=== PATIENT | female | born 1995 | race American Indian/Alaskan Native ===

== ENCOUNTER 2018-01-24 21:41 | Emergency (ER) | payer MEDICAID ==
[2018-01-24 21:41] VITALS: BMI 23.8
[2018-01-24] MEDS ORDERED: Sodium Chloride 0.9% 1,000 ML IV ONE (22:11)
[2018-01-24 22:24] LABS: BASO % 0.2 % (0.0-2.0); EOS # 0.1 K/uL (0.0-0.7); EOS % 1.5 % (0.0-4.0); LYMPH # 1.9 K/uL (1.0-4.3); LYMPH % 32.6 % (20.0-40.0); MEAN CELL VOLUME 82.6 fL (81.0-99.0); MEAN CORPUSCULAR HEMOGLOBIN 27.1 pg (27.0-31.0); MEAN CORPUSCULAR HGB CONC 32.8 g/dL (33.0-37.0); MONO # 0.6 K/uL (0.0-0.8); MONO % 10.5 % (0.0-10.0); NEUT # 3.3 K/uL (1.8-7.0); NEUT % 55.2 % (50.0-75.0); NRBC % 0.1 % (0.0-2.0); RBC 4.42 Mil/uL (3.80-5.20); RED CELL DISTRIBUTION WIDTH 13.6 % (11.5-14.5)
[2018-01-24] MEDS ORDERED: Sodium Chloride 0.9% 100 ML ONE (22:54)
[2018-01-24 22:58] LABS: ALB/GLOB RATIO 1.3 (1.0-2.1); ALBUMIN 4.3 g/dL (3.5-5.0); ALT/SGPT 18 U/L (9-52); AST/SGOT 22 U/L (14-36); BLOOD UREA NITROGEN 11 mg/dL (7-17); CALCIUM 9.3 mg/dl (8.6-10.4); GFR NON-AFRICAN AMERICAN > 60; LIPASE 267 U/L (23-300)
[2018-01-24 23:09] LABS: SQUAMOUS EPITHIAL 7 /hpf (0-5); URINE BILIRUBIN NEGATIVE (NEGATIVE); URINE BLOOD NEGATIVE (NEGATIVE); URINE CLARITY Clear (Clear); URINE COLOR Yellow (YELLOW); URINE GLUCOSE (UA) NORMAL (Normal); URINE LEUKOCYTE ESTERASE NEG Leu/uL (Negative); URINE PROTEIN NEGATIVE (NEGATIVE)
[2018-01-24 23:11] LABS: HCG,QUALITATIVE URINE NEGATIVE (NEGATIVE)
--- NOTE | 2018-01-24 23:48 | C.PDOC ---
History Of Present Illness Patient presents to ED c/o diffuse abdominal pain for approx 1 week. She states the pain is intermittent, sometimes feesl liek burning. She denies nausea/vomiting/diarrhea, fever, dysuria/hematuria, vaginal bleeding/discharge. Time Seen by Provider: 01/24/18 21:54 Chief Complaint (Nursing): Abdominal Pain History Per: Patient History/Exam Limitations: no limitations Onset/Duration Of Symptoms: Days (approx 1 week) Current Symptoms Are (Timing): Still Present Severity: Mild Location Of Pain/Discomfort: Diffuse Past Medical History Reviewed: Historical Data, Nursing Documentation, Vital Signs Vital Signs: Last Vital Signs Temp 98.6 F 01/24/18 21:45 Pulse 80 01/24/18 21:45 Resp 14 01/24/18 21:45 BP 104/76 01/24/18 21:45 Pulse Ox 98 01/24/18 21:45 - Medical History PMH: No Chronic Diseases Denies: Chronic Kidney Disease Family History: States: No Known Family Hx - Social History Hx Alcohol Use: No Hx Substance Use: No - Immunization History Hx Tetanus Toxoid Vaccination: No Hx Influenza Vaccination: No Hx Pneumococcal Vaccination: No Review Of Systems Constitutional: Negative for: Fever, Chills Cardiovascular: Negative for: Chest Pain, Palpitations Respiratory: Negative for: Cough, Shortness of Breath Gastrointestinal: Positive for: Abdominal Pain. Negative for: Nausea, Vomiting, Diarrhea Genitourinary: Negative for: Dysuria, Hematuria, Vaginal Discharge, Vaginal Bleeding Physical Exam - Physical Exam Appears: Well, Non-toxic, No Acute Distress Skin: Normal Color, Warm, Dry Oral Mucosa: Moist Cardiovascular: Rhythm Regular Respiratory: Normal Breath Sounds, No Rales, No Rhonchi, No Wheezing Gastrointestinal/Abdominal: Bowel Sounds, Soft, Tenderness (mild diffuse TTP, (- ) McBurney's, (-) Lock's) Back: No CVA Tenderness Neurological/Psych: Oriented x3 ED Course And Treatment - Laboratory Results Result Diagrams: 01/24/18 22:21 01/24/18 22:21 O2 Sat by Pulse Oximetry: 98 (RA) Pulse Ox Interpretation: Normal Progress Note: Blood work, UA, Upreg and CT scan abd/pelvis ordered and reviewed. Patient given IV NS bolus. Disposition - Disposition Disposition Time: 00:00 Condition: STABLE Forms: [employer] (Georgian) - Clinical Impression Clinical Impression: Abdominal pain Physician Patient Turnover Patient Signed Over To: Gaby Paz Handoff Comments: pending ct scan abd/pelvis
[2018-01-25 00:38] VITALS: PULSE 70; RESP 18
[2018-01-25 01:04] VITALS: BP 105/85; TEMP 98.5; O2SAT 100
--- NOTE | 2018-01-25 10:14 | CT ---
Date of service: 01/24/2018 PROCEDURE: CT Abdomen and Pelvis without intravenous contrast HISTORY: lower abdominal pain COMPARISON: None. TECHNIQUE: Contiguous images were obtained from the domes of the diaphragms to the upper thighs without the administration of intravenous contrast. Oral contrast was not administered. Radiation dose: Total exam DLP = 323.07 mGy-cm. This CT exam was performed using one or more of the following dose reduction techniques: Automated exposure control, adjustment of the mA and/or kV according to patient size, and/or use of iterative reconstruction technique. FINDINGS: LOWER THORAX: Unremarkable. LIVER: Unremarkable. No gross lesion or ductal dilatation. GALLBLADDER AND BILE DUCTS: Unremarkable. PANCREAS: Unremarkable. No gross lesion or ductal dilatation. SPLEEN: Unremarkable. ADRENALS: Unremarkable. No mass. KIDNEYS AND URETERS: Unremarkable. No hydronephrosis. No solid mass. VASCULATURE: Unremarkable. No aortic aneurysm. No aortic atherosclerotic calcification or mural plaque present. BOWEL: Unremarkable. No obstruction. No gross mural thickening. APPENDIX: Unremarkable. Normal appendix. PERITONEUM: Unremarkable. No free fluid. No free air. LYMPH NODES: Unremarkable. No enlarged lymph nodes. BLADDER: Unremarkable. REPRODUCTIVE: Unremarkable. BONES: No acute fracture. OTHER FINDINGS: None. IMPRESSION: No acute abdominal pelvic pathology.
== END 2018-01-25 01:03 | disposition home or self-care (01) ==
LOC: C.ER 21:41
DX: R10.9 Unspecified abdominal pain (principal)
CPT/HCPCS: 74176; 80053; 81001; 83690; 84703; 85025; 96360; 99285; J7030

== ENCOUNTER 2018-07-09 18:25 | Emergency (ER) | payer MEDICAID ==
[2018-07-09 18:48] VITALS: PULSE 84; RESP 18; O2SAT 100; BMI 27.2
[2018-07-09] MEDS ORDERED: Sodium Chloride 0.9% 1,000 ML IV ONE (19:23)
[2018-07-09 19:51] LABS: BASO % 0.4 % (0.0-2.0); EOS % 0.8 % (0.0-4.0); HEMOGLOBIN 11.5 g/dL (11.0-16.0); LYMPH # 1.5 K/uL (1.0-4.3); MEAN CELL VOLUME 82.4 fL (81.0-99.0); MEAN CORPUSCULAR HEMOGLOBIN 27.4 pg (27.0-31.0); MEAN CORPUSCULAR HGB CONC 33.2 g/dL (33.0-37.0); MEAN PLATELET VOLUME 8.6 fL (7.2-11.7); MONO # 0.5 K/uL (0.0-0.8); MONO % 10.7 % (0.0-10.0); NEUT # 2.7 K/uL (1.8-7.0); NEUT % 56.1 % (50.0-75.0); NRBC % 0.1 % (0.0-2.0); RBC 4.19 Mil/uL (3.80-5.20); RED CELL DISTRIBUTION WIDTH 13.1 % (11.5-14.5); WHITE BLOOD COUNT 4.8 K/uL (4.8-10.8)
[2018-07-09 20:01] LABS: HCG,QUALITATIVE URINE POSITIVE (NEGATIVE)
[2018-07-09 20:03] LABS: SQUAMOUS EPITHIAL 3 /hpf (0-5); URINE BACTERIA OCC (<OCC); URINE BILIRUBIN NEGATIVE (NEGATIVE); URINE BLOOD NEGATIVE (NEGATIVE); URINE CLARITY Hazy (Clear); URINE COLOR Yellow (YELLOW); URINE GLUCOSE (UA) NORMAL (Normal); URINE LEUKOCYTE ESTERASE NEG Leu/uL (Negative); URINE PROTEIN NEGATIVE (NEGATIVE)
[2018-07-09 20:04] LABS: ALB/GLOB RATIO 1.5 (1.0-2.1); ALBUMIN 4.3 g/dL (3.5-5.0); ALT/SGPT 14 U/L (9-52); AST/SGOT 27 U/L (14-36); BLOOD UREA NITROGEN 8 mg/dL (7-17); CALCIUM 9.5 mg/dl (8.6-10.4); GFR NON-AFRICAN AMERICAN > 60
[2018-07-09 21:31] VITALS: BP 103/65; TEMP 98.3
--- NOTE | 2018-07-09 21:32 | C.PDOC ---
History Of Present Illness 22 year old female, G2, P0, A1, presents to the ED for evaluation after a home positive test. Patient was seen at [facility] but presents today [place] [facility] [place]". Patient also c/o lower abdominal pain radiating to her lower back usually for her menstrual cramps. Patient denies fever, chills, nausea, vomit, diarrhea, rash, vaginal bleeding. Time Seen by Provider: 07/09/18 19:10 Chief Complaint (Nursing): Abdominal Pain History Per: Patient History/Exam Limitations: no limitations Onset/Duration Of Symptoms: Days Current Symptoms Are (Timing): Still Present Location Of Pain/Discomfort: Suprapubic Radiation Of Pain To:: Back Quality Of Discomfort: Cramping Associated Symptoms: denies: Nausea, Vomiting, Diarrhea, Urinary Symptoms Recent travel outside of the [place]: No Additional History Per: Patient Abnormal Vaginal Bleeding: No : 2 Para: 0 Miscarriage: 1 Past Medical History Reviewed: Historical Data, Nursing Documentation, Vital Signs Vital Signs: Last Vital Signs Temp 98.1 F 07/09/18 18:31 Pulse 84 07/09/18 18:31 Resp 18 07/09/18 18:31 BP 136/76 07/09/18 18:31 Pulse Ox 100 07/09/18 18:31 - Medical History PMH: No Chronic Diseases Denies: Chronic Kidney Disease Surgical History: No Surg Hx Family History: States: Unknown Family Hx - Social History Hx Alcohol Use: No Hx Substance Use: No - Immunization History Hx Tetanus Toxoid Vaccination: No Hx Influenza Vaccination: No Hx Pneumococcal Vaccination: No Review Of Systems Constitutional: Negative for: Fever, Chills Cardiovascular: Negative for: Chest Pain Respiratory: Negative for: Shortness of Breath Gastrointestinal: Positive for: Abdominal Pain. Negative for: Nausea, Vomiting, Diarrhea Genitourinary: Negative for: Dysuria, Vaginal Discharge, Vaginal Bleeding Musculoskeletal: Positive for: Back Pain Neurological: Negative for: Weakness, Numbness Physical Exam - Physical Exam Appears: Non-toxic, No Acute Distress Skin: Normal Color, Warm, Dry Head: Atraumatic, Normacephalic Eye(s): bilateral: Normal Inspection Oral Mucosa: Moist Neck: Normal ROM, Supple Chest: Symmetrical Cardiovascular: Rhythm Regular Respiratory: Normal Breath Sounds, No Rales, No Rhonchi, No Wheezing Gastrointestinal/Abdominal: Soft, No Tenderness, No Guarding, No Rebound Extremity: Normal ROM, No Tenderness, No Swelling Neurological/Psych: Oriented x3, Normal Speech, Normal Cognition Gait: Steady ED Course And Treatment - Laboratory Results Result Diagrams: 07/09/18 19:45 07/09/18 19:45 Lab Results: Total Bilirubin 0.8 mg/dL (0.2-1.3) 07/09/18 19:45 AST 27 U/L (14-36) 07/09/18 19:45 ALT 14 U/L (9-52) 07/09/18 19:45 Alkaline Phosphatase 79 U/L (38-126) 07/09/18 19:45 Total Protein 7.2 g/dL (6.3-8.3) 07/09/18:45 Albumin 4.3 g/dL (3.5-5.0) 07/09/18 19:45 Globulin 2.9 gm/dL (2.2-3.9) 07/09/18 19:45 Albumin/Globulin Ratio 1.5 (1.0-2.1) 07/09/18 19:45 Urine Color Yellow (YELLOW) 07/09/18 19:52 Urine Clarity Hazy (Clear) 07/09/18 19:52 Urine pH 6.0 (5.0-8.0) 07/09/18 19:52 Ur Specific [place] 1.020 (1.003-1.030) 07/09/18 19:52 Urine Protein Negative mg/dL (NEGATIVE) 07/09/18 19:52 Urine Glucose (UA) Normal mg/dL (Normal) 07/09/18 19:52 Urine Ketones Trace mg/dL (NEGATIVE) 07/09/18 19:52 Urine Blood Negative (NEGATIVE) 07/09/18 19:52 Urine Nitrate Negative (NEGATIVE) 07/09/18 19:52 Urine Bilirubin Negative (NEGATIVE) 07/09/18 19:52 Urine Urobilinogen 2.0 mg/dL (0.2-1.0) H 07/09/18 19:52 Ur Leukocyte Esterase Neg Minerva/uL (Negative) 07/09/18 19:52 Urine WBC (Auto) 1 /hpf (0-5) 07/09/18 19:52 Urine RBC (Auto) 1 /hpf (0-3) 04/12/19 19:52 Ur Squamous Epith Cells 3 /hpf (0-5) 07/09/18 19:52 Urine Bacteria Occ (<OCC) H 07/09/18 19:52 Urine HCG, Qual Positive (NEGATIVE) 07/09/18 19:52 Beta HCG, Quant 1305.10 mIU/ML 07/09/18 19:45 Urine HCG, Qual Positive (NEGATIVE) 07/09/18 19:52 Lab Interpretation: Normal (qhcg 1305, O+) Urine POC: Positive O2 Sat by Pulse Oximetry: 100 (ON RA) Pulse Ox Interpretation: Normal - CT Scan/US Pelvic US Other Rad Studies (CT/US): Read By Radiologist, Radiology Report Reviewed CT/US Interpretation: CLINICAL HISTORY: Pelvic pain, early . The patient is G2, P0, 1 . The last menstrual period was on 06/01/2018. EGA by LMP is 5 weeks 3 days. ESTEBAN by LMP is 03/08/2019. TECHNIQUE: Realtime sonographic images were obtained in multiple projections. Color Doppler imaging was obtained. COMMENTS: heart motion is not present. Yolk sac is not identified. pole is not identified. Gestational sac is seen measuring 3.7 mm, too small for dating. The uterus is anteverted measuring 8.08 x 5.05 x 5.75 cm with no masses visualized. The endometrial echo pattern is within normal limits measuring 1.37 cm. Free fluid is seen within the pelvic cul-de-sac. The right ovary measures 2.74 x 1.79 x 2.58 cm. The left ovary measures 5.48 x 3.99 x 5.32. The right ovary is free of masses. Left ovarian cyst is seen measuring 4.35 x 3.21 x 4.74 cm with free fluid visualized by left ovary. Blood flow is demonstrated within both ovaries. IMPRESSION: 1. G estational sac is seen measuring 3.7 mm, too small for dating. Clinical correlation is recommended and consider follow-up in 7-10 days. 2. Free fluid within the pelvic cul-de-sac. 3. Left ovarian cyst and free fluid by left ovary. . Electronically signed on Jul 09, 2018 9:49:00 PM EDT by: Alexsander Morse M.D., GIL Certified By ABR & CBCCT. Fellowship Trained MRI and CT Specialist Reevaluation Time: 21:29 Reassessment Condition: Improved Medical Decision Making Medical Decision Making: early IUP too early to date no ectopic O+ QHCG 1305 Disposition Doctor Will See Patient In The: Office Counseled Patient/Family Regarding: Studies Performed, Diagnosis - Disposition Referrals: [facility] [Outside] [facility] [Outside] [facility] [Outside] [facility] [Outside] Alicia Lara MD [Staff Provider] - Disposition: HOME/ ROUTINE Disposition Time: 21:32 Condition: GOOD Additional Instructions: early preg/IUP QHCG 1305 (very low/early) T/C O+ if menstrual-like bleeding then miscarriage in progress continue vitamin If persists: care- next US @ 12 weeks Instructions: Threatened Miscarriage (DC) Forms: [employer] (Urdu) - Clinical Impression Clinical Impression: Early stage of - Scribe Statement The provider has reviewed the documentation as recorded by the Scribe Jean-Claude Rush All medical record entries made by the Scribe were at my direction and per sonally dictated by me. I have reviewed the chart and agree that the record accurately reflects my personal performance of the history, physical exam, medical decision making, and the department course for this patient. I have also personally directed, reviewed, and agree with the discharge instructions and disposition.
--- NOTE | 2018-07-10 15:21 | US ---
Pelvic ultrasound HISTORY: . Pelvic pain. COMPARISON: None available. Technique: Real-time sonography was performed through the pelvis utilizing transabdominal and transvaginal technique. Findings: Uterus: 8.1 x 5.1 x 5.8 centimeters. Heterogeneous echotexture. Anteverted. Prominent endometrium measures 1.37 centimeters. Cervix measures 3.09 centimeters. Suggestion of an intrauterine gestational sac measuring 3.7 millimeters, too small to adequately date. No yolk sac or pole identified. Small to moderate amount of free fluid within the pelvic cul-de-sac. Right ovary: 2.7 x 1.8 x 2.6 centimeters. Normal flow. Left ovary: 5.4 x 4.0 x 5.2 centimeters. Normal flow. Heterogeneous hypoechoic cyst measuring 4.4 x 3.2 x 4.7 centimeters. Free fluid adjacent to the left ovary. Impression: Positive test. Impression: Small 3.7 millimeter hypoechoic foci seen within the uterus which may represent a small intrauterine gestational sac. This is too small to adequately date. Interval follow-up ultrasound is recommended. No gross yolk sac or pole is identified. Small to moderate amount of free fluid adjacent to the pelvic cul-de-sac and adjacent to the left ovary. Heterogeneous left ovarian cyst measuring up to 4.7 centimeters. Clinical correlation. Interval follow-up ultrasound is recommended. Limited 1st trimester ultrasound for viability purposes only. Continued interval followup with serial ultrasound, serial HCG levels, and gynecological consultation would be helpful if clinically indicated. A preliminary report was generated at 9:49 p.m. on 07/09/[address] Alexsander Morse from [facility]
== END 2018-07-09 21:53 | disposition home or self-care (01) ==
LOC: C.ER 18:25
DX: O26.891 Other specified pregnancy related conditions, first trimester (principal); Z3A.00 Weeks of gestation of pregnancy not specified
CPT/HCPCS: 76805; 76817; 80053; 81001; 84702; 84703; 85025; 86850; 86900; 96360; 96361; 99284; J7030